=== PATIENT | female | born 1980 | race Caucasian/White ===

== ENCOUNTER 2021-04-28 08:00 | Day surgery (SDC) | payer MEDICAID, SELFPAY ==
[~2021-04-28] VITALS: Ht 157.5 cm; Wt 90.7 kg
[2021-04-28 08:54] LABS: HCG,QUAL RESULT NEGATIVE (NEGATIVE)
[2021-04-28] MEDS: MEPERIDINE 100 MG INJ. 100 MG/ML VIAL ONE ×3 (10:44→10:55)
[2021-04-28] MEDS: MIDAZOLAM HCL 5 MG/5 ML VIAL ONE ×4 (10:44→10:53)
[2021-04-28 15:15] VITALS: BP_SYST 164
== END 2021-04-28 12:15 | disposition home or self-care (01) ==
LOC: SDS 08:00 → SMU 08:00 → SDS 12:15
PROVIDERS: ATTEND Internal Medicine Gastroenterology
DX: R13.10 Dysphagia, unspecified (principal); K22.2 Esophageal obstruction; K25.9 Gastric ulcer, unspecified as acute or chronic, without hemorrhage or perforation; K29.70 Gastritis, unspecified, without bleeding; K44.9 Diaphragmatic hernia without obstruction or gangrene; I10 Essential (primary) hypertension; Z20.822 Contact with and (suspected) exposure to COVID-19; Z79.899 Other long term (current) drug therapy
CPT/HCPCS: 36415; 43239; 43248; 84703; 87081; 87426; 88305; 88312; 88313; 99152; C1769; G0378; J2175; J2250; U0003